=== PATIENT | female | born 1990 | race Asian ===

== ENCOUNTER 2023-03-29 18:14 | Emergency (ER) | payer SELFPAY ==
--- NOTE | ~2023-03-29 | CT_ITS ---
EXAMINATION: CT abdomen pelvis w con DATE: 03/29/2023 21:20 INDICATION: lower ab pain TECHNIQUE: Computed tomography (CT) of the abdomen and pelvis was performed with 100 mL Omnipaque-350 intravenous contrast. Automated exposure control and iterative reconstruction technique were employe d. The dose-length product was 308.28 mGy-cm. COMPARISON: None. FINDINGS: Lower thorax: Unremarkable Liver: Normal. Biliary/Gallbladder: Gallbladder is normal. No bile duct dilation. Pancreas: No mass or duct dilation. Spleen: Normal. Adrenals:No mass. Kidneys: No suspicious mass, obstructing stone, or hydronephrosis. GI tract: Mild distal esophageal and gastric wall edema. No small or large bowel dilation. Normal mercedes endix. Mesentery/Peritoneum: No ascites, mass, or free air. Retroperitoneum: No mass. Pelvis: Pelvic organs are within normal limits. Soft Tissues: Soft tissues and body wall unremarkable. Bones: No acute osseous finding. IMPRESSION: Mild esophagitis/gastritis. Otherwise, no acute abdominopelvic process detected. Reviewed, dictated and finalized at location K. [facility]
[2023-03-29 18:24] VITALS: BP 110/70; PULSE 97; RESP 14; TEMP 36.5; O2SAT 99
[2023-03-29 20:25] LABS: Basophils Percent Auto 0.3 % (0.2-1.2); Eosinophils Absolute Auto 0.4 K/mm3 (0-0.3); Eosinophils Percent Auto 3.3 % (0-4.4); Hematocrit 41.1 % (37.0-47.0); Hemoglobin 13.4 g/dL (12.0-15.0); Immature Granulocyte Absolute 0.08 K/mm3 (0.00-0.031); Immature Granulocyte Percent A 0.7 % (0-0.5); Lymphocytes Absolute Auto 2.54 K/mm3 (0.9-3.2); Lymphocytes Percent Auto 22.8 % (18.3-44.2); Mean Corpuscular HGB Conc 32.6 g/dl (32-36); Mean Corpuscular Hemoglobin 30.2 pg (26-34); Mean Corpuscular Volume 92.6 fl (80-100); Mean Platelet Volume 10.7 fl (7.4-10.4); Monocytes Absolute Auto 0.5 K/mm3 (0.1-0.6); Monocytes Percent Auto 4.7 % (2.6-8.5); Neutrophils Absolute Auto 7.6 K/mm3 (1.3-6.7); Neutrophils Percent Auto 68.2 % (45.5-73.1); Platelet Count Result 258 k/mm3 (150-375); Red Blood Count 4.44 M/mm3 (4.2-5.4); Red Cell Distribution Width 12.6 % (11.5-14.5); White Blood Count 11.2 K/mm3 (4.5-10.0)
--- NOTE | 2023-03-29 20:33 | ED.ABDPAIN ---
HPI - Abdominal Pain General Chief Complaint: Abdominal Pain Stated Complaint: Abdomen pain Time Seen by Provider: 03/29/23 20:26 History of Present Illness HPI narrative: 32-year-old female presenting to the emergency department for evaluation of 3 days of right flank pain that radiates around to her bilateral lower abdomen. Patient does have a history of constipation but did have a bowel movement today. Patient denies any prior issues of ovarian cysts or kidney stones. Patient denies any associated chest pain or shortness of breath. Patient denies any associated nausea vomiting. Related Data Allergies Allergy/AdvReac Type Severity Reaction Status Date / Time No Known Allergies Allergy Verified 03/29/23 20:59 Review of Systems Review of Systems: All systems reviewed & are unremarkable except as noted in HPI and below Exam Narrative: APPEARANCE: Well appearing, no pain, no distress, well-nourished. HEAD: normocephalic, atraumatic. EYES: PERRLA/EOMI, conjunctivae clear. NECK: Supple. No adenopathy, no masses. RESPIRATORY: Airway patent, respirations nonlabored. Clear to auscultation bilaterally, no rales, rhonchi, wheezing. CARDIOVASCULAR: Regular rate and rhythm without murmurs rubs or gallops. ABDOMINAL: Soft, nondistended, normal bowel sounds, lower abdominal tenderness to palpation MUSCULOSKELETAL: Moves all extremities. Strength/ROM intact, No edema, No calf tenderness. NEURO: Alert. Cranial nerves II through XII intact. Grossly SKIN: Warm, dry. Normal Color Course Course Emergency Course: 32-year-old female present to the emergency department for evaluation for abdominal pain. Patient is afebrile but does have a leukocytosis of 11.2, stable hemoglobin of 13.4. No acute abnormalities on the CMP including a normal lipase. UA shows no evidence of infection. CT scan did show evidence of gastritis and esophagitis. Patient was treated with Protonix in the ED and patient was discharged home with instructions to avoid NSAIDs alcohol, to take Prilosec for the next 14 days and have close follow-up with GI. All questions concerns were addressed patient was comfortable at time of discharge. Vital Signs Vital signs: Vital Signs Temperature 97.7 F 03/29/23 18:24 Pulse Rate 97 03/29/23 18:24 Respiratory Rate 14 03/29/23 18:24 Blood Pressure 110/70 03/29/23 18:24 Pulse Oximetry 99 02/18/24 18:24 Temperature 97.7 F 03/29/23 18:24 Pulse Rate 84 03/29/23 22:37 Respiratory Rate 16 03/29/23 22:37 Blood Pressure 109/73 03/29/23 22:37 Pulse Oximetry 99 03/29/23 22:37 MDM - Abdominal Pain Differential Diagnosis Differential diagnosis: Likely acute appendicitis, calculus of kidney, diverticulitis, endometriosis, gastroenteritis, pancreatitis and small bowel obstruction Lab Data Attestation: I reviewed the patient's lab results. 03/29/23 20:18 03/29/23 20:18 Labs: Lab Results 03/29/23 Range/Units 20:18 WBC 11.2 H (4.5-10.0) K/mm3 RBC 4.44 (4.2-5.4) M/mm3 Hgb 13.4 (12.0-15.0) g/dL Hct 41.1 (37.0-47.0) % MCV 92.6 (80-100) fl MCH 30.2 (26-34) pg MCHC 32.6 (32-36) g/dl RDW 12.6 (11.5-14.5) % Plt Count 258 (150-375) k/mm3 MPV 10.7 H (7.4-10.4) fl Immature Gran % (Auto) 0.7 H (0-0.5) % Neut % (Auto) 68.2 (45.5-73.1) % Lymph % (Auto) 22.8 (18.3-44.2) % [place] % (Auto) 4.7 (2.6-8.5) % Eos % (Auto) 3.3 (0-4.4) % Baso % (Auto) 0.3 (0.2-1.2) % Lymph # (Auto) 2.54 (0.9-3.2) K/mm3 [place] # (Auto) 0.5 (0.1-0.6) K/mm3 Eos # (Auto) 0.4 H (0-0.3) K/mm3 Baso # (Auto) 0.0 (0.0-0.1) K/mm3 Abs Immat Gran (auto) 0.08 H (0.00-0.031) K/mm3 Absolute Neuts (auto) 7.6 H (1.3-6.7) K/mm3 Absolute Nucleated RBC 0.0 (0.0-0.012) K/mm3 Nucleated RBC % 0.0 (0.0-0.2) % Sodium 139 (137-145) mmol/L Potassium 3.6 (3.4-5.0) mmol/L Chloride 102 (98-107) mmol/L Carbon Dioxide 30 (22-30) mmol/L
[2023-03-29 20:34] LABS: Alanine Aminotransferase 26 U/L (6-35); Albumin Level 4.5 g/dL (3.5-5.1); Alkaline Phosphatase 56 U/L (38-126); Anion Gap 7 mmol/L (8-16); Aspartate Amino Transferase 27 U/L (14-36); Bilirubin,Total 0.8 mg/dL (0.2-1.3); Blood Urea Nitrogen 12 mg/dL (7-17); Calcium 9.5 mg/dL (8.4-10.2); Carbon Dioxide 30 mmol/L (22-30); Chloride 102 mmol/L (98-107); Estimated Glomerular Filt Rate > 60; Glucose 118 mg/dL (65-110); Lipase 28 U/L (23-300); Potassium 3.6 mmol/L (3.4-5.0); Sodium 139 mmol/L (137-145)
[2023-03-29 20:39] LABS: Appearance Urine Clear (Clear); Bilirubin Urine Negative (Negative); Blood Urine Negative (Negative); Color Urine Yellow (Yellow); Glucose Urine UA Negative (Negative); Ketones Urine Negative (Negative); Leukocyte Esterase Ur Negative LEU/UL (Negative); Nitrate Urine Negative (Negative); Protein Urine Negative (Negative); Specific Grav Ur 1.023 (1.001-1.035); Urobilinogen Urine 0.2 mg/dL (<2.0)
[2023-03-29 20:53] LABS: Add Urine Microscopic? NO
[2023-03-29] MEDS: SODIUM CHLORIDE 0.9% IV 1,000 ML 999 ML IV CONT (21:00)
[2023-03-29] MEDS: HYDROmorphone HCL INJ (*CRX) 1 MG/ML SYR 0.5 MG IV PUSH (21:01)
[2023-03-29 21:05] VITALS: BP 100/60; PULSE 76; RESP 15; O2SAT 99
[2023-03-29 22:37] VITALS: BP 109/73; PULSE 84; RESP 16; O2SAT 99
[2023-03-29] MEDS: PANTOPRAZOLE SODIUM IV 40 MG VIAL IV PUSH (22:38)
== END 2023-03-29 22:48 | disposition home or self-care (01) ==
PROVIDERS: Emergency Provider Emergency Medicine
DX: K29.70 Gastritis, unspecified, without bleeding (principal)
CPT/HCPCS: 36415; 74177; 80053; 81003; 81025; 83690; 85025; 96361; 96374; 96375; 99284; C9113; J1170; J7030; Q9967